=== PATIENT | male | born 1935 | race Caucasian/White ===

== ENCOUNTER 2018-09-26 18:04 | Emergency (ER) | payer BC, MEDICARE ==
[~2018-09-26] VITALS: Ht 172.7 cm; Wt 72.6 kg
[2018-09-26 18:05] VITALS: BP 124/79
--- NOTE | 2018-09-26 18:05 | NUR ---
ED Nurse Note: Pt was brought in ED by Ambulance from [facility]. C/o fell and was injuried of his right hand. Pt is awake, confused. Weakness on his legs. Pt's right hand was bleeding with leceration at between the 3rd and 4th finger. Vital signs stable, Dr. Abdi at bed side, waitng for orders.
[2018-09-26] MEDS ORDERED: DONEPEZIL HCL5 MG ORAL (18:12)
[2018-09-26] MEDS ORDERED: NAMENDA10 MG ORAL (18:12)
[2018-09-26] MEDS ORDERED: Bacitracin Oint UD TOPIC ONE (18:15)
[2018-09-26] MEDS ORDERED: Lidocaine 1% MPF 10mg/ml 5ml INJ ONE (18:15)
--- NOTE | 2018-09-26 20:15 | Diagnostic Imaging Report ---
EXAM: CT Head Without Intravenous Contrast CLINICAL HISTORY: TRAUMA TECHNIQUE: Axial computed tomography images of the head/brain without intravenous contrast. CTDI is 70 mGy and DLP is 1467 mGy-cm. One or more of the following dose reduction techniques were used: automated exposure control, adjustment of the mA and/or kV according to patient size, use of iterative reconstruction technique. COMPARISON: No relevant prior studies available. FINDINGS: Brain: No acute intracranial hemorrhage or cortical ischemia. Chronic small vessel ischemic changes. Ventricles: Unremarkable. No ventriculomegaly. Bones/joints: Unremarkable. No acute fracture. Soft tissues: Unremarkable. Sinuses: Unremarkable as visualized. Mastoid air cells: Unremarkable as visualized. IMPRESSION: No acute intracranial hemorrhage or skull fracture.
--- NOTE | 2018-09-26 22:56 | Emergency Room Report ---
History of Present Illness General Chief Complaint: Multiple Trauma/Fall Source: EMS Present Illness HPI Patient allegedly fell and caught himself with his right hand. Tore the tissue between his middle and ring fingers. Bleeding was controlled at the scene. The patient has advanced Alzheimer's disease and cannot recall the event or give any other history. He states he does have some pain in his hand. Was allegedly no head trauma and the patient did not lose consciousness. Further history is unobtainable. Allergies: Uncoded Allergies: PENICILLIN (Allergy, Unknown, 09/26/18) Patient History Limited by: medical condition Past Medical History: see triage record Social History: Denies: smoking, alcohol use, drug use Social History Narrative With difficulty the patient finally recall that he was born in [place]. Resident at [facility] Reviewed Nursing Documentation: PMH: Agreed; PSxH: Agreed Nursing Documentation-PMH Past Medical History: No History, Except For History Of Psychiatric Problem: Yes - Dementia Review of Systems All Other Systems: limited Physical Exam Vital Signs Date Time Temp Pulse Resp B/P (MAP) Pulse Ox O2 Delivery O2 Flow Rate FiO2 09/26/18 18:05 56 14 Room Air 09/26/18 18:05 98.2 122/81 96 Sp02 EP Interpretation: reviewed, normal General Appearance: no apparent distress, Chronically Ill Head: normocephalic, atraumatic Eyes: bilateral eye normal inspection, bilateral eye PERRL ENT: moist mucus membranes Neck: supple, no bony tend Respiratory: chest non-tender, lungs clear, normal breath sounds Cardiovascular #1: regular rate, rhythm, no edema Cardiovascular #2: 2+ radial (R) - Good capillary refill Gastrointestinal: normal bowel sounds, non tender, soft, scaphoid Musculoskeletal: normal range of motion, other - Atrophy Neurologic: alert, sensory intact, motor weakness - Generalized weakness, oriented - X1 Psychiatric: mood/affect normal, other - For recent and distal memory Skin: laceration - 3 cm between the middle and ring fingers of the right hand. No bleeding no foreign body Procedures Laceration/Wound Repair Laceration/Wound Repair : Consent: Verbal Wound Location: upper extremity Wound's Depth, Shape: superficial Wound Explored: clean Irrigated w/ Saline (ccs): 20 Betadine Prep?: Yes Anesthesia: 1% Lidocaine Volume Anesthetic (ccs): 5 Wound Debrided: none Wound Repaired With: sutures Suture Size/Type: 5:0, nylon Sterile Dressing Applied?: Yes Patient Tolerated: Well Complications: None Medical Decision Making Diagnostic Impression: Primary Impression: Multiple injuries due to trauma Additional Impressions: Hand laceration Qualified Codes: S61.411A - Laceration without foreign body of right hand, initial encounter Dementia Qualified Codes: F03.90 - Unspecified dementia without behavioral disturbance History of falls ER Course Patient fell and cut his right hand. Differential includes laceration, contusion. Exam is against fracture and there are no foreign bodies. In addition we are unable to ascertain if he injured his head although it is unlikely. A CT of the head is ordered. Patient has advanced dementia and therefore accurate history is unobtainable. In addition tetanus is administered. CT of the head unremarkable. The laceration is repaired and dressed. Patient tolerated well. Patient stable for outpatient observation and treatment. CT/MRI/US Diagnostic Results CT/MRI/US Diagnostic Results : Imaging Test Ordered: head Impression atrophy Last Vital Signs Date Time Temp Pulse Resp B/P (MAP) Pulse Ox O2 Delivery O2 Flow Rate FiO2 09/27/18 00:08 98.1 53 14 154/72 96 Room Air Status: improved Disposition: XFER SNF Condition: Improved Scripts Bacitracin (Bacitracin) 28.4 Gm Oint...g. 1 APPLIC TOPIC BID, #14 GM Prov: Maxime Abdi MD 09/26/18 Referrals: NON PHYSICIAN (PCP) Maxime Abdi MD Sep 26, 2018 22:56
[2018-09-26] MEDS ORDERED: BACITRACIN15 GM TOPIC (22:57)
--- NOTE | 2018-09-26 23:06 | NUR ---
Spoke with Cesar at [facility]-aware of patients return back home by ambulance.
[2018-09-27 00:08] VITALS: BP 154/72
--- NOTE | 2018-09-27 00:08 | NUR ---
ED Nurse Note: Pt has seen by Dr. Abdi, suture done and dressing applied. Pt is ready to d/c and return back to [facility]. Ambulance arrived. report given to EMS at bed side. ID band removed. Pt is A/O X3. VSS.
== END 2018-09-27 00:08 ==
LOC: EDBD 18:04 → EMR 19:56
DX: S61.212A Laceration without foreign body of right middle finger without damage to nail, initial encounter (principal); S61.214A Laceration without foreign body of right ring finger without damage to nail, initial encounter; W19.XXXA Unspecified fall, initial encounter; Y92.89 Other specified places as the place of occurrence of the external cause; Z88.0 Allergy status to penicillin; G30.9 Alzheimer's disease, unspecified; F02.80 Dementia in other diseases classified elsewhere, unspecified severity, without behavioral disturbance, psychotic disturbance, mood disturbance, and anxiety
CPT/HCPCS: 70450; 99284